=== PATIENT | female | born 1945 | race Caucasian/White ===

== ENCOUNTER 2018-01-23 02:24 | Emergency (ER) | payer OTHER, SELFPAY ==
[2018-01-23 02:38] VITALS: BP 131/92; PULSE 72; RESP 18; TEMP 36.7; O2SAT 98; BMI 33.8
--- NOTE | 2018-01-23 02:45 | DI.CT.S_ITS ---
PROCEDURE: CT HEAD/BRAIN WO CON INDICATIONS: 72 year-old female with right arm tingling and prior stroke. TECHNIQUE: Noncontrast 4.5 mm thick angled axial sections acquired from the foramen magnum to the vertex, with coronal and sagittal reformats. For radiation dose reduction, the following was used: automated exposure control, adjustment of mA and/or kV according to patient size. COMPARISON: [facility], CT, HEAD WITHOUT CONTRAST, 01/22/2015, 15:46. FINDINGS: Preliminary interpretation rendered by [employer]. Image quality: Excellent. CSF spaces: Basal cisterns are patent. No extra-axial fluid collections. The ventricles are symmetric in size and shape. Brain: No intracranial bleeds or masses. There are patchy subcortical white matter chronic small vessel ischemic changes. Nonacute left thalamic lacunar infarct is again noted. There is patchy intracranial internal carotid artery atherosclerosis. Skull and face: Calvarium and visualized facial bones appear intact, without suspicious lesions. Sinuses: Visualized sinuses and mastoids are clear. IMPRESSION: 1. No acute intracranial abnormalities. 2. Remote left thalamic lacunar infarct as before. 3. Patchy subcortical white matter chronic small vessel ischemic change. No significant discrepancy with preliminary [facility] report. Dictated by: Eduard Yo M.D. on 01/23/2018 at 7:49 Approved by: Eduard Yo M.D. on 01/23/2018 at 7:52
--- NOTE | 2018-01-23 02:48 | ED.NEUROSD ---
HPI - Neuro Symptoms/Deficit General Chief Complaint: Neuro Symptoms/Deficit Stated Complaint: Possible Stroke Time Seen by Provider: 01/23/18 02:44 Source: patient, RN notes reviewed and old records reviewed Mode of arrival: ambulatory Limitations: no limitations History of Present Illness HPI Narrative: Patient is a 72-year-old female presents with right arm tingling. It is difficult to get a proper history from her he says this started sometime today but it may have actually been on going for a number of years and progressively getting worse. She denies any weakness. She is concerned for a stroke. Records indicate that she has in the past had either a TIA or a CVA. She has no residual deficits. He states that number of years ago she has injured her right shoulder. She was feeling well earlier in the day. She has no chest pain no cough no shortness of breath no fever Onset (ago): unknown On Anticoagulants: No Related Data Previous Rx's Medication Instructions Recorded albuterol sulfate HFA 90 1 puff INHALATION QIDP PRN #1 ea 01/17/18 mcg/actuation aerosol inhaler atorvastatin 20 mg tablet 20 mg PO HS #90 tab 01/17/18 chlorthalidone 25 mg tablet 25 mg PO QDAY #90 tab 01/17/18 paroxetine 40 mg tablet 40 mg PO QAM #90 tab 01/17/18 Allergies Allergy/AdvReac Type Severity Reaction Status Date / Time erythromycin base Allergy Intermediate Nausea, Verified 01/17/18 10:03 [ERYTHROMYCIN BASE] felt worse after taking codeine [CODEINE] Allergy Mild Nausea Verified 01/17/18 10:03 Review of Systems Review of Systems All systems reviewed & are unremarkable except as noted in HPI and below Constitutional Denies chills, Denies fever(s), Denies frequent falls, Denies headache(s), Denies lethargy and Denies weakness ENT Ears, Nose, Mouth, and Throat: Denies headache(s) Cardiovascular Denies chest pain, Denies syncope, Denies irregular heart rhythm, Denies lightheadedness, Denies palpitations, Denies dyspnea, Denies dyspnea on exertion and Denies orthopnea Respiratory Denies cough, Denies dyspnea, Denies dyspnea on exertion and Denies wheezing Gastrointestinal Gastrointestinal: Denies abdominal pain, Denies change in bowel habits, Denies diarrhea, Denies nausea and Denies vomiting Genitourinary Denies hematuria, Denies flank pain, Denies urinary incontinence and Denies urinary urgency Musculoskeletal Denies abnormal gait and Reports tingling (Right arm) Integumentary/Breasts Denies pruritus, Denies erythema, Denies rash and Denies wounds Neurologic Reports as per HPI, Denies abnormal gait, Denies syncope, Denies frequent falls, Denies headache(s), Denies lack of coordination, Denies focal weakness, Reports radicular pain, Reports tingling (Right arm) and Denies weakness Endocrine Denies palpitations Allergic/Immunologic Denies wheezing [facility] Medical History Allergic rhinitis (Chronic Unknown) Anxiety (Chronic Unknown) COPD (chronic obstructive pulmonary disease) (Chronic Unknown) Depression (Chronic Unknown) GERD (gastroesophageal reflux disease) (Chronic Unknown) Hyperlipemia (Chronic Unknown) Migraines (Chronic Unknown) History of pericarditis (Resolved Unknown) Stroke (Resolved Unknown) Surgical History Status post cholecystectomy Family History Father Asthma Grandmother AA (aortic aneurysm) Mother Stroke Arthritis Sister Osteoporosis Social History Smoking Status: Current every day smoker Tobacco: How many years used: 40 quit status: has quit before alcohol intake: never Exam Initial Vital Signs Initial Vital Signs: Vital Signs Temperature 98.0 F 01/23/18 02:38 Pulse Rate 72 01/23/18 02:38 Respiratory Rate 18 01/23/18 02:38 Blood Pressure 131/92 H 01/23/18 02:38 Pulse Oximetry 98 01/23/18 02:38 Const General: cooperative and comfortable Nutritional Appearance: average body habitus Orientation: alert, awake and oriented x3 HENMT Head: normal to inspection and normocephalic Face and sinus: normal facial exam and face symmetric Eyes Pupils: PERRL EOM: EOM intact bilaterally Neck Neck: full ROM, no meningeal signs and No JVD Resp Effort & Inspection: normal respiratory effort and able to speak in complete sentences Auscultation: clear to auscultation bilaterally Cardio Rate: regular rate Rhythm: regular rhythm Heart Sounds: S1 normal, S2 normal and no murmurs Pulses: normal peripheral pulses GI Inspection: non-distended Palpation: soft, no hepatosplenomegaly, No guarding, No pulsatile mass and No tender Auscultation: normal bowel sounds Skin General: no rashes or lesions noted, No jaundice and No petechiae Neuro General: alert, awake, oriented x3 and normal light touch, pain and propioception Cranial Nerves: CN's II-XI intact bilaterally and facial strength normal Cognition: normal cognition Speech: speech normal Gait: normal gait Motor: muscle tone normal throughout and strength 5/5 throughout Sensory Exam: no sensory deficits noted Extrem General: normal to inspection and full ROM Right upper extremity: normal to inspection, full ROM and normal capillary refill Left upper extremity: normal to inspection Right lower extremity: normal to inspection Left lower extremity: normal to inspection Scores NIH Stroke Scale Level of Conciousness: Alert, keenly responsive Ask month/age: Answers both questions correctly. Open/close eyes, close hand: Performs both tasks correctly Best gaze horizontal: Normal Visual huerta: No visual loss Facial palsy: Normal symetrical movement Left arm drift: No drift for full 10 sec Right arm drift: No drift for full 10 sec Left leg drift: No drift for full 10 sec Right leg drift: No drift for full 10 sec Limb ataxia: Absent Sensory on face/arms/legs: Normal, no sensory loss Best language: No aphasia, normal Dysarthria: Normal Extinction or inattention: No abnormality Total NIH Stroke scale score: 0 Course Orders Ordered: ED Orders 01/23/18 02:45 CT head/brain wo con Stat EKG-12 Lead Stat 01/23/18 02:57 Complete Blood Count MAN DIFF Stat Comprehensive Metabolic Panel Stat Creatine Kinase Urgent Partial Thromboplastin Time Stat Prothrombin Time INR Stat Troponin I Stat Vital Signs - 8 hr 01/23/18 02:38 01/23/18 04:06 Temperature 98.0 F Pulse Rate 72 91 H Respiratory Rate 18 18 Blood Pressure 131/92 H 128/84 H Pulse Oximetry 98 94 MDM - Neuro Symptoms/Deficit Lab Data Result diagrams: 01/23/18 02:57 01/23/18 02:57 Lab Results 01/23/18 01/23/18 01/23/18 Range/Units 02:57 02:57 02:57 WBC 10.4 (4.5-11.0) X10^3/uL RBC 5.13 (4.0-5.2) X10^6/uL Hgb 15.1 (12.0-16.0) g/dL Hct 44.3 (36-46) % MCV 86.4 (80-100) fL MCH 29.6 (26-34) PG MCHC 34.2 (30-36) % RDW 15.9 H (11.6-14.8) % Plt Count 293 (150-400) X10^3/uL PT (10.1-12.7) SECONDS INR (0.9-1.3) APTT (26.4-36.2) SECONDS Sodium 142 (137-145) mmol/L Potassium 3.3 L (3.4-5.1) mmol/L Chloride 98 (98-107) mmol/L Carbon Dioxide 32 (22-32) mmol/L BUN 22 H (7-17) mg/dL Creatinine 0.80 (0.52-1.04) mg/dL Estimated GFR > 60.0 (>60) mL/min BUN/Creatinine Ratio 27.5 H (6-22) Glucose 103 (80-110) mg/dL Calcium 8.9 (8.4-10.2) mg/dL Total Bilirubin 0.3 (0.2-1.3) mg/dL AST 25 (14-36) IU/L ALT 28 (9-52) IU/L Alkaline Phosphatase 187 H (38-126) U/L Total Creatine Kinase 67 (30-135) U/L CK-MB (CK-2) Cancelled Troponin I < 0.012 (0.01-0.034) ng/mL Total Protein 8.0 (6.3-8.2) g/dL Albumin 4.3 (3.5-5.0) g/dL Globulin 3.7 (1.7-4.1) g/dL Albumin/Globulin Ratio 1.2 (1.0-2.8) 01/23/18 Range/Units 02:57 WBC (4.5-11.0) X10^3/uL RBC (4.0-5.2) X10^6/uL Hgb (12.0-16.0) g/dL Hct (36-46) % MCV (80-100) fL MCH (26-34) PG MCHC (30-36) % RDW (11.6-14.8) % Plt Count (150-400) X10^3/uL PT 11.8 (10.1-12.7) SECONDS INR 1.1 (0.9-1.3) APTT 33 (26.4-36.2) SECONDS Sodium (137-145) mmol/L Potassium (3.4-5.1) mmol/L Chloride (98-107) mmol/L Carbon Dioxide (22-32) mmol/L BUN (7-17) mg/dL Creatinine (0.52-1.04) mg/dL Estimated GFR (>60) mL/min BUN/Creatinine Ratio (6-22) Glucose (80-110) mg/dL Calcium (8.4-10.2) mg/dL Total Bilirubin (0.2-1.3) mg/dL AST (14-36) IU/L ALT (9-52) IU/L Alkaline Phosphatase (38-126) U/L Total Creatine Kinase (30-135) U/L CK-MB (CK-2) Troponin I (0.01-0.034) ng/mL Total Protein (6.3-8.2) g/dL Albumin (3.5-5.0) g/dL Globulin (1.7-4.1) g/dL Albumin/Globulin Ratio (1.0-2.8) Imaging Data CT scan - head: 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 These are similar to previous EKGs no acute changes. no ST changes MDM Narrative Medical decision making narrative: Patient has no focal deficits. Symptoms more consistent with neuropathy. Blood work CT and EKG are within normal limits. He appears nontoxic. Discussed further workup with primary care provider. I have educated her on stroke symptoms along with the person who lives with her, and what to do. Patient feels comfortable going home. Discharge Plan Departure Patient Disposition: Home, Self-Care Clinical Impression: Peripheral neuropathy Discharge Date/Time: 01/23/18 04:07 Interventions: ED Discharge Assessment Last Done: 01/23/18 04:06 Instructions: DI for Peripheral Neuropathy Activity Restrictions/Additional Instructions: *You have been diagnosed with peripheral neuropathy *What to do: No sign of acute stroke, may require further outpatient testing with your primary doctor *Continue to take medications as directed *Follow up with your primary care provider in 2-3 days *Return to ER if you should have weakness, facial droop, vision changes or any new, worsening or concerning symptoms Prescriptions: No Action albuterol sulfate [Ventolin HFA] 90 mcg/actuation HFA aerosol inhaler 1 puff INHALATION QIDP PRN (Reason: shortness of breath) Qty: 1 RF: 5 atorvastatin [Lipitor] 20 mg tablet 20 mg PO HS Qty: 90 RF: 1 chlorthalidone 25 mg tablet 25 mg PO QDAY Qty: 90 RF: 1 paroxetine HCl [Paxil] 40 mg tablet 40 mg PO QAM Qty: 90 RF: 1 Referrals: Tashia Carolina DO [Primary Care Provider] -
[2018-01-23 03:12] LABS: Alanine Aminotransferase 28 IU/L (9-52); Albumin 4.3 g/dL (3.5-5.0); Albumin Globulin Ratio 1.2 (1.0-2.8); Alkaline Phosphatase 187 U/L (38-126); Aspartate Aminotransferase 25 IU/L (14-36); BUN Creatinine Ratio 27.5 (6-22); Bilirubin Total 0.3 mg/dL (0.2-1.3); Blood Urea Nitrogen 22 mg/dL (7-17); Calcium 8.9 mg/dL (8.4-10.2); Carbon Dioxide 32 mmol/L (22-32); Chloride 98 mmol/L (98-107); Estimated Glomerular Filt Rate > 60.0 mL/min (>60); Globulin 3.7 g/dL (1.7-4.1); Glucose 103 mg/dL (80-110); HEMOLYSIS < 15 (0-50); Potassium 3.3 mmol/L (3.4-5.1); Sodium 142 mmol/L (137-145)
[2018-01-23 03:13] LABS: Hematocrit 44.3 % (36-46); Hemoglobin 15.1 g/dL (12.0-16.0); Mean Corpuscular HGB Conc 34.2 % (30-36); Mean Corpuscular Hemoglobin 29.6 PG (26-34); Mean Corpuscular Volume 86.4 fL (80-100); Platelet Count 293 X10^3/uL (150-400); Red Blood Cell Count 5.13 X10^6/uL (4.0-5.2); Red Cell Distribution Width 15.9 % (11.6-14.8); White Blood Cell Count 10.4 X10^3/uL (4.5-11.0)
[2018-01-23 03:24] LABS: INR 1.1 (0.9-1.3); Prothrombin Time 11.8 SECONDS (10.1-12.7)
[2018-01-23 03:26] LABS: Troponin I < 0.012 ng/mL (0.01-0.034)
[2018-01-23 03:27] LABS: PTT Partial Thromboplastin Tim 33 SECONDS (26.4-36.2)
[2018-01-23 03:35] LABS: Creatine Kinase 67 U/L (30-135)
[2018-01-23 04:06] VITALS: BP 128/84; PULSE 91; RESP 18; O2SAT 94
[2018-01-23 04:39] LABS: Neutrophils Absolute Manual 5200 /uL (3000-5900); Total Cells Counted 100
[2018-01-23 04:40] LABS: Anisocytosis 2+
== END 2018-01-23 04:07 | disposition home or self-care (01) ==
PROVIDERS: Emergency Provider Emergency Medicine; Family Provider Family Medicine; PCP Family Medicine
DX: G62.9 Polyneuropathy, unspecified (principal)
CPT/HCPCS: 36591; 70450; 80053; 82550; 82553; 84484; 85025; 85610; 85730; 93005; 99282; 99291

== ENCOUNTER → 2018-02-20 08:27 | Outpatient (CLI) | payer OTHER, SELFPAY ==
[2018-02-20 08:58] LABS: Influenza A and B by PCR Rapid Negative (Negative)
== END ==
PROVIDERS: Family Provider Family Medicine; PCP Family Medicine; Visit Provider Physician Assistant
DX: R05 Cough (principal)
CPT/HCPCS: 87400

== ENCOUNTER → 2018-02-20 10:02 | Outpatient (CLI) | payer OTHER, SELFPAY ==
[2018-02-20 10:49] LABS: Add Manual Diff / Slide Review NO; Basophils Percent Auto 0.8 % (0-2); Eosinophils Percent Auto 0.5 % (2-4); Hematocrit 44.3 % (36-46); Hemoglobin 14.8 g/dL (12.0-16.0); Lymphocytes Percent Auto 27.5 % (25-40); Mean Corpuscular HGB Conc 33.5 % (30-36); Mean Corpuscular Volume 86.7 fL (80-100); Monocytes Percent Auto 9.5 % (3-14); Neutrophils Absolute Auto 3700 /uL (3000-5900); Neutrophils Percent Auto 61.7 % (50-75); Platelet Count 221 X10^3/uL (150-400); Red Blood Cell Count 5.11 X10^6/uL (4.0-5.2); Red Cell Distribution Width 15.8 % (11.6-14.8)
[2018-02-20 11:12] LABS: Alanine Aminotransferase 40 IU/L (9-52); Albumin 4.1 g/dL (3.5-5.0); Albumin Globulin Ratio 1.3 (1.0-2.8); Alkaline Phosphatase 161 U/L (38-126); Aspartate Aminotransferase 36 IU/L (14-36); BUN Creatinine Ratio 28.9 (6-22); Bilirubin Total 0.2 mg/dL (0.2-1.3); Blood Urea Nitrogen 26 mg/dL (7-17); Calcium 9.1 mg/dL (8.4-10.2); Carbon Dioxide 34 mmol/L (22-32); Chloride 96 mmol/L (98-107); Cholesterol 107 mg/dL (140-199); Estimated Glomerular Filt Rate > 60.0 mL/min (>60); Globulin 3.1 g/dL (1.7-4.1); Glucose 111 mg/dL (80-110); HDL Cholesterol 40 mg/dL (40-60); HEMOLYSIS < 15 (0-50); LDL Cholesterol Calculated 41 mg/dL (<100); Potassium 3.6 mmol/L (3.4-5.1); Sodium 141 mmol/L (137-145); Total Protein 7.2 g/dL (6.3-8.2); Triglycerides 130 mg/dL (35-150)
[2018-02-20 11:28] LABS: Appearance Urine UA CLEAR; Bilirubin Urine UA NEGATIVE (NEGATIVE); Color Urine UA YELLOW; Glucose Urine UA NEGATIVE (Normal); Ketones Urine UA NEGATIVE (NEGATIVE); Leukocyte Esterase Urine UA NEGATIVE (NEGATIVE); Nitrite Urine UA Negative (Negative); Occult Blood Urine UA TRACE-LYSED (Negative); Protein Urine UA TRACE (Negative); Specific Gravity Urine UA >=1.030 (1.000-1.035); Urobilinogen Urine UA 0.2 E.U./dL (0.2)
[2018-02-20 11:40] LABS: Thyroid Stimulating Hormone 3.67 uIU/mL (0.47-4.68)
== END ==
PROVIDERS: PCP Family Medicine; Visit Provider Physician Assistant
DX: J18.9 Pneumonia, unspecified organism (principal); I10 Essential (primary) hypertension; Z51.81 Encounter for therapeutic drug level monitoring
CPT/HCPCS: 36415; 80053; 80061; 81003; 84443; 85025; 87400

== ENCOUNTER 2018-02-21 19:30 | Observation (INO) | payer OTHER, SELFPAY ==
[2018-02-21] VITALS (8 sets, daily range): BP systolic 101–143; BP diastolic 59–74; PULSE 76–92; RESP 16–24; TEMP 36.4; O2SAT 87–93
--- NOTE | 2018-02-21 20:08 | ED.SOB ---
HPI - SOB/Dyspnea General Chief Complaint: Shortness of Breath/Dyspnea Stated Complaint: SOB Time Seen by Provider: 02/21/18 20:06 Source: patient Mode of arrival: ambulatory Limitations: no limitations History of Present Illness 72-year-old female with a significant smoking history here for evaluation of shortness of breath and not feeling well. Patient states that she started to not feel well a couple days ago. She does have an albuterol inhaler at home which she was using which only minimally helped her symptoms. She did go to the walk-in clinic within the past 2 days and was given an albuterol neb there which she states helped her symptoms tremendously. She was sent home with a prescription for Levaquin. States she has taken this for 2 days And reports that after she took it earlier today she felt worse she states she was not sent home with any steroids. She states she has never been diagnosed with COPD. She does not use oxygen at home. Does not use a walker at home on a regular basis. Related Data Home Medications Medication Instructions Recorded Confirmed aspirin 325 mg tablet 325 mg PO DAILY 02/20/18 02/21/18 Previous Rx's Medication Instructions Recorded albuterol sulfate HFA 90 1 puff INHALATION QIDP PRN #1 ea 01/17/18 mcg/actuation aerosol inhaler atorvastatin 20 mg tablet 20 mg PO HS #90 tab 01/17/18 chlorthalidone 25 mg tablet 25 mg PO QDAY #90 tab 01/17/18 paroxetine 40 mg tablet 40 mg PO QAM #90 tab 01/17/18 levofloxacin 750 mg tablet 750 mg PO DAILY 7 Days #7 tab 02/20/18 Allergies Allergy/AdvReac Type Severity Reaction Status Date / Time erythromycin base Allergy Intermediate Nausea, Verified 01/17/18 10:03 [ERYTHROMYCIN BASE] felt worse after taking codeine [CODEINE] Allergy Mild Nausea Verified 01/17/18 10:03 Review of Systems Constitutional Reports fatigue, Denies fever(s), Denies headache(s), Reports lethargy and Reports malaise ENT Ears, Nose, Mouth, and Throat: Denies headache(s) Cardiovascular Denies chest pain, Denies palpitations and Reports dyspnea Respiratory Reports chest congestion, Reports cough and Reports dyspnea Gastrointestinal Gastrointestinal: Denies diarrhea, Denies nausea and Denies vomiting Genitourinary Denies dysuria Musculoskeletal Denies myalgias and Denies arthralgias Comments: Does describe generalized muscle weakness Integumentary/Breasts Denies lesions and Denies rash Neurologic Denies headache(s) Endocrine Reports fatigue and Denies palpitations Hematologic/Lymphatic Denies easy bleeding and Denies easy bruising Allergic/Immunologic Denies urticaria [facility] Medical History Allergic rhinitis (Chronic Unknown) Anxiety (Chronic Unknown) COPD (chronic obstructive pulmonary disease) (Chronic Unknown) Depression (Chronic Unknown) GERD (gastroesophageal reflux disease) (Chronic Unknown) Hyperlipemia (Chronic Unknown) Migraines (Chronic Unknown) History of pericarditis (Resolved Unknown) Stroke (Resolved Unknown) Surgical History Status post cholecystectomy Family History Father Asthma Grandmother AA (aortic aneurysm) Mother Stroke Arthritis Sister Osteoporosis Social History household members: spouse and family Smoking Status: Current every day smoker Tobacco: How many years used: 40 quit status: has quit before alcohol intake: never Exam Initial Vital Signs Initial Vital Signs: Vital Signs Temperature 97.5 F L 02/21/18 19:35 Pulse Rate 78 02/21/18 19:35 Respiratory Rate 20 02/21/18 19:35 Blood Pressure 119/72 02/21/18 19:35 Pulse Oximetry 92 02/21/18 19:35 Const General: cooperative, healthy appearing and comfortable Orientation: alert, awake and oriented x3 HENMT Head: normal to inspection, normocephalic and atraumatic Resp Effort & Inspection: cough, no nasal flaring, no respiratory distress, no retractions and tachypneic Auscultation: rhonchi and wheezes Cardio Rate: regular rate Rhythm: regular rhythm Pulses: radial pulses present Skin Lesions: no lesions Rashes: no rashes Neuro General: alert, awake and oriented x3 Speech: speech normal Motor: muscle tone normal throughout Sensory Exam: no sensory deficits noted Extrem General: normal to inspection, capillary refill normal and no pedal edema Psych Appearance: grossly normal and well kempt Course Orders Ordered: ED Orders 02/21/18 20:08 EKG-12 Lead Stat 02/21/18 20:10 Complete Blood Count AUTO DIFF Stat Comprehensive Metabolic Panel Stat 02/21/18 20:13 Consult to Respiratory Therapy Evaluate & Treat XR chest 2V Stat 02/21/18 20:15 Urine Microscopic Stat 02/21/18 21:20 Lactate (Lactic Acid) Stat 02/21/18 23:13 Consult to Physician Routine 02/22/18 01:30 Lactate 4HR (Lactic Acid Rflx) Stat Albuterol (Ventolin) 2.5 mg INH [id number] PRN PRN Reason: Shortness Of Breath Sodium Chloride (Normal Saline 0.9% Flush) 10 ml IV BID WAQAS Sodium Chloride (Normal Saline 0.9% Flush) 10 ml IV PRN PRN PRN Reason: Flush Discontinued Medications Albuterol (Ventolin) 2.5 mg INH NOW ONE Stop: 02/21/18 20:23 Last Admin: 02/21/18 20:34 Dose: 2.5 mg Albuterol (Ventolin) 2.5 mg INH NOW ONE Stop: 02/21/18 20:23 Last Admin: 02/21/18 20:35 Dose: 2.5 mg Albuterol (Ventolin) 2.5 mg INH NOW ONE Stop: 02/21/18 20:23 Last Admin: 02/21/18 20:35 Dose: 2.5 mg Methylprednisolone (Solu-Medrol 125 Mg Vial) 125 mg IV NOW ONE Stop: 02/21/18 20:24 Last Admin: 02/21/18 20:33 Dose: 125 mg Vital Signs - 8 hr 02/21/18 20:00 02/21/18 20:44 02/21/18 21:14 Temperature Pulse Rate 82 89 84 Respiratory Rate 19 18 16 Blood Pressure Blood Pressure [Right Arm] 143/71 H 133/74 H Pulse Oximetry 92 93 90 L 02/21/18 22:08 02/21/18 22:11 02/21/18 22:21 Temperature Pulse Rate 84 84 92 H Respiratory Rate 24 24 24 Blood Pressure Blood Pressure [Right Arm] 101/62 101/62 Pulse Oximetry 90 L 90 L 87 L 02/21/18 23:11 02/22/18 00:30 02/22/18 02:42 Temperature 98.7 F Pulse Rate 76 79 Respiratory Rate 20 20 Blood Pressure 139/74 H Blood Pressure [Right Arm] 142/59 H Pulse Oximetry 91 89 L 93 MDM - SOB/Dyspnea Medical Records Attestation: I reviewed the patient's medical records. Lab Data Attestation: I reviewed the patient's lab results. Result diagrams: 02/21/18 20:10 02/21/18 20:10 Lab Results 02/21/18 02/21/18 02/21/18 Range/Units 20:10 20:10 20:15 WBC 5.5 (4.5-11.0) X10^3/uL RBC 5.25 H (4.0-5.2) X10^6/uL Hgb 15.3 (12.0-16.0) g/dL Hct 45.3 (36-46) % MCV 86.3 (80-100) fL MCH 29.2 (26-34) PG MCHC 33.9 (30-36) % RDW 16.1 H (11.6-14.8) % Plt Count 192 (150-400) X10^3/uL Neut % (Auto) 63.9 (50-75) % Lymph % (Auto) 27.2 (25-40) % [place] % (Auto) 7.6 (3-14) % Eos % (Auto) 0.2 L (2-4) % Baso % (Auto) 1.1 (0-2) % Neut # (Auto) 3500 (7760-1984) /uL Sodium 140 (137-145) mmol/L Potassium 3.4 (3.4-5.1) mmol/L Chloride 96 L (98-107) mmol/L Carbon Dioxide 32 (22-32) mmol/L BUN 21 H (7-17) mg/dL Creatinine 0.90 (0.52-1.04) mg/dL Estimated GFR > 60.0 (>60) mL/min BUN/Creatinine Ratio 23.3 H (6-22) Glucose 108 (80-110) mg/dL Lactate (0.7-2.1) mmol/L Calcium 9.1 (8.4-10.2) mg/dL Total Bilirubin 0.3 (0.2-1.3) mg/dL AST 43 H (14-36) IU/L ALT 37 (9-52) IU/L Alkaline Phosphatase 162 H (38-126) U/L Total Protein 7.7 (6.3-8.2) g/dL Albumin 4.3 (3.5-5.0) g/dL Globulin 3.4 (1.7-4.1) g/dL Albumin/Globulin Ratio 1.3 (1.0-2.8) Urine RBC None seen (0-5/HPF) Urine WBC 1-5/hpf (0-5/HPF) Ur Squamous Epith Cells 1-5 /hpf Amorphous Sediment 1+ Urine Bacteria Occasional (0-1) (None) Urine Mucus 1+ H (Negative) Ur Culture Indicated? Cult not indicated Micro UA Comment Not Reportable 02/21/18 02/22/18 Range/Units 21:20 01:30 WBC (4.5-11.0) X10^3/uL RBC (4.0-5.2) X10^6/uL Hgb (12.0-16.0) g/dL Hct (36-46) % MCV (80-100) fL MCH (26-34) PG MCHC (30-36) % RDW (11.6-14.8) % Plt Count (150-400) X10^3/uL Neut % (Auto) (50-75) % Lymph % (Auto) (25-40) % [place] % (Auto) (3-14) % Eos % (Auto) (2-4) % Baso % (Auto) (0-2) % Neut # (Auto) (2584-1918) /uL Sodium (137-145) mmol/L Potassium (3.4-5.1) mmol/L Chloride (98-107) mmol/L Carbon Dioxide (22-32) mmol/L BUN (7-17) mg/dL Creatinine (0.52-1.04) mg/dL Estimated GFR (>60) mL/min BUN/Creatinine Ratio (6-22) Glucose (80-110) mg/dL Lactate 2.3 H 3.8 H (0.7-2.1) mmol/L Calcium (8.4-10.2) mg/dL Total Bilirubin (0.2-1.3) mg/dL AST (14-36) IU/L ALT (9-52) IU/L Alkaline Phosphatase (38-126) U/L Total Protein (6.3-8.2) g/dL Albumin (3.5-5.0) g/dL Globulin (1.7-4.1) g/dL Albumin/Globulin Ratio (1.0-2.8) Urine RBC (0-5/HPF) Urine WBC (0-5/HPF) Ur Squamous Epith Cells Amorphous Sediment Urine Bacteria (None) Urine Mucus (Negative) Ur Culture Indicated? Micro UA Comment MDM Narrative Medical decision making narrative: patient was afebrile here in the emergency department. Does not have an elevated white count. Does have a lactate of 2.3. Her wheezing improved manner sling after the 3 albuterol nebs here in the ER. She was also given steroids here. She did take a dose of Levaquin earlier today so no antibiotics were given here in the emergency department. After these interventions the patient states that she did feel much better but was not back to baseline she did ambulate here in the emergency department however did have to use a walker which she normally does not use. On room air patient's oxygen saturations were in the high 80s. On 2 L of nasal cannula they were in the mid 90s. On ambulation patient did drop to the 80s. I held on a chest x-ray secondary to the fact that the patient is currently on antibiotics that would treat any potential pneumonia and the fact that she did not have a fever did not have an elevated white blood cell count and that her lung sounds did improve after the albuterol nebulizers. Patient does not have a diagnosis of COPD however given her smoking history and her presentation today, she most likely carries this diagnosis. Patient clinically is not in heart failure. Has no lower extremity swelling. Her presentation is not consistent with this. She denies any chest pain. Discussed the case with Dr. Torres who asked that respiratory obtain peak expiratory flow. Patient was at 50% of her predicted peak expiratory flow at the time of admission. Will admit the patient for continued evaluation and treatment. Patient was nontoxic appearing. She did agree with the plan for admission to the hospital. The repeat lactate above was drawn after the patient was admitted to the hospital. Discharge Plan Departure Patient Disposition: Admitted as Observation Clinical Impression: COPD exacerbation, Hypoxia, Weakness Discharge Date/Time: 02/22/18 00:05 Interventions: ED Discharge Assessment Last Done: 02/21/18 23:58 Admit Date/Time: 02/21/18 23:18 Admit Provider: Jonathan Torres
--- NOTE | 2018-02-21 20:13 | DI.RAD.S_ITS ---
PROCEDURE: XR CHEST 2V INDICATIONS: shortness of breath TECHNIQUE: 2 views of the chest were acquired. COMPARISON: [facility], CHEST 2 VIEW, 05/03/2017, 23:30. [facility], CHEST 1 VIEW, 08/23/2016, 19:52. [facility], CHEST 1 VIEW, 08/11/2016, 14:28. [facility], CHEST 2 VIEW, 08/09/2016, 13:12. FINDINGS: Surgical changes and devices: None. Lungs and pleura: No pleural effusions or pneumothorax. No focal consolidations. Perihilar and interstitial linear opacities are unchanged from prior exam. Mediastinum: Mediastinal contours are normal. Heart size is normal. Bones and chest wall: No suspicious bony abnormalities. Soft tissues appear unremarkable. Mild multilevel degenerative changes of the thoracic spine. IMPRESSION: No focal consolidations concerning for pneumonia. Dictated by: Ilia Vazquez M.D. on 02/21/2018 at 20:56 Approved by: Ilia Vazquez M.D. on 02/21/2018 at 20:59
[2018-02-21 20:25] LABS: RBC Urine None Seen (0-5/HPF)
[2018-02-21 20:26] LABS: Add Manual Diff / Slide Review NO; Basophils Percent Auto 1.1 % (0-2); Eosinophils Percent Auto 0.2 % (2-4); Hematocrit 45.3 % (36-46); Hemoglobin 15.3 g/dL (12.0-16.0); Lymphocytes Percent Auto 27.2 % (25-40); Mean Corpuscular HGB Conc 33.9 % (30-36); Mean Corpuscular Hemoglobin 29.2 PG (26-34); Mean Corpuscular Volume 86.3 fL (80-100); Monocytes Percent Auto 7.6 % (3-14); Neutrophils Absolute Auto 3500 /uL (3000-5900); Neutrophils Percent Auto 63.9 % (50-75); Platelet Count 192 X10^3/uL (150-400); Red Blood Cell Count 5.25 X10^6/uL (4.0-5.2); Red Cell Distribution Width 16.1 % (11.6-14.8); White Blood Cell Count 5.5 X10^3/uL (4.5-11.0)
[2018-02-21] MEDS: methylPREDNISolone 125 MG/2 ML VIAL IV (20:33)
[2018-02-21] MEDS: ALBUTEROL 2.5 MG/3 ML NEB (ADULT) INH ×3 (20:34→20:35)
[2018-02-21 20:37] LABS: Alanine Aminotransferase 37 IU/L (9-52); Albumin 4.3 g/dL (3.5-5.0); Albumin Globulin Ratio 1.3 (1.0-2.8); Alkaline Phosphatase 162 U/L (38-126); Aspartate Aminotransferase 43 IU/L (14-36); BUN Creatinine Ratio 23.3 (6-22); Bilirubin Total 0.3 mg/dL (0.2-1.3); Blood Urea Nitrogen 21 mg/dL (7-17); Calcium 9.1 mg/dL (8.4-10.2); Carbon Dioxide 32 mmol/L (22-32); Chloride 96 mmol/L (98-107); Estimated Glomerular Filt Rate > 60.0 mL/min (>60); Globulin 3.4 g/dL (1.7-4.1); Glucose 108 mg/dL (80-110); HEMOLYSIS < 15 (0-50); Potassium 3.4 mmol/L (3.4-5.1); Sodium 140 mmol/L (137-145); Total Protein 7.7 g/dL (6.3-8.2)
[2018-02-21 20:43] LABS: Amorphous Sediment Urine 1+; Bacteria Urine Occasional (0-1); Squamous Epithelial Cell Urine 1-5 /HPF; WBC Urine 1-5/HPF (0-5/HPF)
[2018-02-21 20:44] LABS: Culture Indicated Urine Cult Not Indicated; Mucus Urine 1+ (Negative)
[2018-02-21 21:38] LABS: Lactate (Lactic Acid) 2.3 mmol/L (0.7-2.1)
--- NOTE | 2018-02-21 22:22 | PC.NURSE ---
patient tolerated ambulation with a walker and her o2 sats were mostly 87% but she did dip down to 85%. Dr. Nation aware.
--- NOTE | 2018-02-21 22:34 | PC.NURSE ---
patient given saltine crackers and harjeet crackers. Dr. Nation aware.
[2018-02-22 00:19] VITALS: BMI 32.8
[2018-02-22 00:30] VITALS: BP 139/74; PULSE 79; RESP 20; TEMP 37.1; O2SAT 89
[2018-02-22 01:24] LABS: Reflexed Lactate in 2 Hours Y
[2018-02-22 01:53] LABS: Lactate 2HR (Lactic Acid Rflx) 3.8 mmol/L (0.7-2.1)
--- NOTE | 2018-02-22 02:09 | PC.NURSE ---
Admitted to room 218, oriented to her room. Showed how to use her call lgiht, bed & TV controls. Denies any SOB & dyspnea with exertion. Did not C/O pain or discomfort, poor historian not able to recall sister's telephone number. Reported I'm just tired & I can't think right. I need to sleep & rest. Instructed to call for assistance if she needed to get up OOB to the BR. Will monitor.
[2018-02-22 02:42] VITALS: O2SAT 93
[2018-02-22 03:53] VITALS: BP 146/73; PULSE 65; RESP 20; TEMP 36.8; O2SAT 94
[2018-02-22 07:30] VITALS: BP 126/62; PULSE 66; RESP 18; TEMP 36.4; O2SAT 90
--- NOTE | 2018-02-22 09:23 | P.DS_ITS ---
History of Present Illness Date Patient Seen: 02/22/18 Time Patient Seen: 09:00 Chief complaint: SOB Narrative: 72-year-old female, under the primary care of Dr. Tashia Carolina, who was admitted from the [facility] emergency room last night for worsening of shortness of breath for 2 days. She has history of COPD. She has been having worsening of shock shortness of breath and cough in the past 2-3 days. She was given prescription of Levaquin 2 days prior to hospital admission. She felt her symptoms were worse after she took her Levaquin yesterday. She was found to have oxygen saturation in the 80s on room air. She did require nasal cannula oxygen at the ER. Her breathing did improve after 3 nebulizer treatments. She also received IV Solu-Medrol. She feels her breathing has much improved this morning. She still has mild tightness in the chest. She has not noticed any fevers or chills. She denies chest pain. Discharge Providers Date of admission: 02/21/18 23:18 Primary care physician: Tashia Carolina DO Consults: 02/21/18 20:13 Consult to Respiratory Therapy Evaluate & Treat Comment: Physician Instructions: Evaluate and treat 02/21/18 23:13 Consult to Physician Routine Comment: Consulting Provider: Jonathan Torres Reason for consultation: admission Has provider been notified: Yes Discharge provider: Joann Hutchins MD Discharge Date: 02/22/18 Summary Discharge Diagnosis: 1. Acute COPD exacerbation 2. Acute respiratory failure secondary to COPD exacerbation 3. Tobacco abuse 4. Hypertension 5. Hyperlipidemia 6. GERD Hospital Course: Patient has significant improvement of her respiration overnight after receiving nebulizer treatment and 1 dose of IV Solu-Medrol at the ER. Physical exam she had no wheezing and good air entry. She is going to be discharged on Advair Diskus, Spiriva, and albuterol inhalers. Follow up with primary care provider within 1 week. She was initially on nasal cannula oxygen. She is currently having normal saturation on room air. We have discussed the importance of smoking cessation. Nicotine patch prescription will be given at the time of discharge. Status at Discharge Cognitive/behavioral status at discharge: She was alert and oriented Functional status at discharge: independent ambulation Overall status at discharge: patient is progressing back to baseline Time Spent with Patient Greater than 30 minutes Exam Vital Signs (past 8 hours): - 02/22/18 02:42 02/22/18 03:53 02/22/18 07:30 Temperature 98.2 F 97.6 F Pulse Rate 65 66 Respiratory Rate 20 18 Blood Pressure 146/73 H 126/62 H Pulse Oximetry 93 94 90 L Oxygen Delivery Method Room Air Oxygen Flow Rate 0 Narrative Exam Narrative: GENERAL: Obese middle-aged woman in no acute distress. HEENT: Head normocephalic, atraumatic. Eyes pupils equal round NECK: Supple, no JVD, CHEST: Breath sounds equal bilaterally, no wheezes rales or rhonchi. CARDIAC: Regular rate and rhythm without murmurs, rubs or gallops. ABDOMEN: Soft, nontender. Normoactive bowel sounds all 4 quadrants. No guarding or rebound. EXTREMITIES: Normal range of motion, no clubbing or edema. NEUROLOGICAL: Alert and oriented; Normal muscle strength. SKIN: Warm, dry, no petechiae, no rashes or lesions. Objective Imaging Chest x-ray: Radiologist's impression: No pleural effusions or pneumothorax. No focal consolidations. Perihilar and interstitial linear opacities are unchanged from prior exam. Heart size was normal. Labs Result Diagrams: 02/21/18 20:10 02/21/18 20:10 Labs: Laboratory Results - last 24 hr 02/21/18 02/21/18 02/21/18 20:10 20:10 20:15 WBC 5.5 RBC 5.25 H Hgb 15.3 Hct 45.3 MCV 86.3 MCH 29.2 MCHC 33.9 RDW 16.1 H Plt Count 192 Neut % (Auto) 63.9 Lymph % (Auto) 27.2 [place] % (Auto) 7.6 Eos % (Auto) 0.2 L Baso % (Auto) 1.1 Neut # (Auto) 3500 Sodium 140 Potassium 3.4 Chloride 96 L Carbon Dioxide 32 BUN 21 H Creatinine 0.90 Estimated GFR > 60.0 BUN/Creatinine Ratio 23.3 H Glucose 108 Lactate Calcium 9.1 Total Bilirubin 0.3 AST 43 H ALT 37 Alkaline Phosphatase 162 H Total Protein 7.7 Albumin 4.3 Globulin 3.4 Albumin/Globulin Ratio 1.3 Urine RBC None seen Urine WBC 1-5/hpf Ur Squamous Epith Cells 1-5 /hpf Amorphous Sediment 1+ Urine Bacteria Occasional (0-1) Urine Mucus 1+ H Ur Culture Indicated? Cult not indicated Micro UA Comment Not Reportable 02/21/18 02/22/18 21:20 01:30 WBC RBC Hgb Hct MCV MCH MCHC RDW Plt Count Neut % (Auto) Lymph % (Auto) [place] % (Auto) Eos % (Auto) Baso % (Auto) Neut # (Auto) Sodium Potassium Chloride Carbon Dioxide BUN Creatinine Estimated GFR BUN/Creatinine Ratio Glucose Lactate 2.3 H 3.8 H Calcium Total Bilirubin AST ALT Alkaline Phosphatase Total Protein Albumin Globulin Albumin/Globulin Ratio Urine RBC Urine WBC Ur Squamous Epith Cells Amorphous Sediment Urine Bacteria Urine Mucus Ur Culture Indicated? Micro UA Comment Discharge Plan Discharge Plan Patient Disposition: Home, Self-Care Discharge comment: Follow-up with Dr. Carolina within 7 days Provider Discharge Instructions Diet: Low-sodium and Low-cholesterol Discharge Data Primary Care Provider: Tashia Carolina Attending Provider: Jonathan Torres Admit Date/Time: 02/21/18 23:18 Quality VTE Deep Vein Thrombosis/Pulmonary Embolism Present on Admission: No
--- NOTE | 2018-02-22 10:05 | CM.DANOTE ---
Addendum entered by Aurora Redman LPN 02/22/18 14:19: Met again with pt and her daughter, here to pick her up. Pt was moving about room independently and getting dressed. Daughter expressed overall concern re her parents but noted they have not wanted her intervention. Pt today does say she and her do need to make their home more age in place friendly. Pt's spouse is 80 and has chronic health problems. Confirmed that neither are homebound. Did give [employer] with pointed out [facility] Aging and Disability Resource contact number. POMatt discussed and pt considering giving this to her daughter. They will look at the brochure on same and follow up. Pt is encouraged to discuss her concerns re her chronic disease process with PCP and to ask if Pulmonary Rehab program might be helpful. Encouraged pt to allow her daughter to go with her to her PCP visit to act as advocate and because pt does admit to some forgetfulness. Original Note: Discharge Planning/Care Management DCP: assessment: case received, EMR reviewed, d/c summary noted. Met with pt. She is found sitting up in chair, on room air. Introduced self and role. Pt is a 72 year old female who admitted close to midnight 02/21 to care of hospitalist team. She says she does feel better but the steroids made me really shaky. I couldn't sleep all night. Says today she in having to void constantly and it smells bad. Says did not get a change to tell Dr. Hutchins this. Encouraged her to tell JAYESH Sim who will be working on the d/c later this morning. P: home today, clinic followup. Pt will call her family once she has a clearer idea from [place] as to when she will be ready to be released. CM Discharge Assessment Start: 02/22/18 10:03 Freq: Status: Active Protocol: Document 02/22/18 10:03 ITV (Rec: 02/22/18 10:05 ITV [id number]) Discharge Planning Assessment History Provided By Patient Medical Record Has Patient been admitted in last 30 No days? Is this patient on Medicare? No Prior Living Arrangements House Household Members spouse family Independent with ADL's Yes Is patient alert and oriented? Yes Referrals Initiated None needed Discharge Plan Home Transportation Arrangement family member will take her home Additional Comment pt confirms she will followup with her PCP as soon as possible Review Status In Process Next Review Type Discharge Review
== END 2018-02-22 11:21 | disposition home or self-care (01) ==
LOC: ED 23:13 → AC 23:19
PROVIDERS: Admitting Provider Internal Medicine; Emergency Provider Emergency Medicine; Family Provider Family Medicine; PCP Family Medicine; Visit Provider Internal Medicine
DX: J44.1 Chronic obstructive pulmonary disease with (acute) exacerbation (principal); R06.02 Shortness of breath; J96.00 Acute respiratory failure, unspecified whether with hypoxia or hypercapnia; I10 Essential (primary) hypertension; E78.5 Hyperlipidemia, unspecified; K21.9 Gastro-esophageal reflux disease without esophagitis; F17.210 Nicotine dependence, cigarettes, uncomplicated
CPT/HCPCS: 36415; 36591; 71046; 80053; 81003; 81015; 83605; 85025; 93005; 94640; 96374; 99283; 99285; G0378; J2930; J7613

== ENCOUNTER 2018-03-28 07:38 | Day surgery (SDC) | payer OTHER, SELFPAY ==
[2018-03-28] MEDS: PROPARACAINE 0.5% OPHTH SOL 2 DROPS EYE-OP (08:10)
[2018-03-28 08:14] VITALS: BMI 33.5
[2018-03-28] MEDS: CATARACT EYE COMPOUND (10 DROPS/SYRINGE) 3 DROPS EYE-OP (08:17)
[2018-03-28 08:32] VITALS: BP 130/77; PULSE 67; RESP 16; TEMP 36; O2SAT 67
--- NOTE | 2018-03-28 09:10 | P.OP.PRE_ITS ---
Pre-operative Note Interval Note Changes: No
--- NOTE | 2018-03-28 09:10 | PM.PREOP ---
Pre-operative Note Interval Note Changes: No
--- NOTE | 2018-03-28 09:11 | P.OP_ITS ---
Operative Date/Time/Diagnoses Pre-op diagnosis: Cataract Right eye Post-op diagnosis: same Procedure & Clinicians Procedure: Cataract Surgery Same procedure as scheduled: Yes Surgeon: Agustin Wilde Anesthesia Type: MAC +/- and Sedation Operative Notes Procedure in detail: Patient brought to the operating suite. Tetracaine drops placed in the right eye. Patient was prepped and draped in sterile manner. Wire lid speculum was placed in the eye. Betadine drops were placed on the eye. This was irrigated. Lidocaine jelly was placed on the eye. A paracentesis port was created with a side-port blade. 0.1 mL 1% preservative free lidocaine was injected into the anterior chamber. The anterior chamber was deepened with viscoelastic. 2.6 mm keratome was used to create a temporal clear corneal incision. Cystotome and Utrata forceps were used to create continuous tear capsulorrhexis. Balanced salt solution was used to hydro dissect the nucleus. The phacoemulsification handpiece was inserted and the nucleus was removed using the stop and chop technique. The irrigation aspiration handpiece was inserted and the remaining cortex was removed. Anterior chamber was deepened with viscoelastic. An Gary [id number] intraocular lens with a power of 25.0 was injected into the capsular bag. Irrigation aspiration handpiece was inserted and the remaining viscoelastic was removed. Incision was hydrated with balanced salt solution and found to be leak free with pressure with Weck- Maria Victoria sponges. 0.1 mL Vigamox injected anterior chamber. 0.3 mL Kenalog 10 mg was injected subconjunctivally. Lid speculum was removed. The patient left the operating room in excellent condition. Complications: none Condition: stable Disposition: same day surgery
--- NOTE | 2018-03-28 09:21 | SUR.OPER ---
Supine on eye stretcher, head on extension cradle secured with tape. Arms tucked at sides with blanket. Pillow under knees.
[2018-03-28] MEDS: LIDOCAINE 1% 10 ML INJ INJ (09:24)
[2018-03-28] MEDS: MOXIFLOXACIN OPHTH DROPS 3 ML BOTTLE 2 DROPS INJ (09:25)
[2018-03-28] MEDS: TRIAMCINOLONE 50 MG/5 ML VIAL INJ (09:25)
[2018-03-28] MEDS: TETRACAINE 0.5% OPHTH DROPS 15 ML 2 DROPS EYE-RIGHT (09:25)
[2018-03-28] MEDS: BALANCED SALT IRRIG SOLN NO.2 500 ML, EPINEPHrine 1 MG IRR (09:25)
[2018-03-28] MEDS: LIDOCAINE JELLY 2% 5 ML 1 APPLIC TOP (09:26)
[2018-03-28] MEDS: CHONDROIDTIN/SOD HYALURONATE 1.05 ML SYRINGE INTRAOCULA (09:26)
[2018-03-28 09:50] VITALS: BP 103/70; PULSE 67; RESP 12; TEMP 36.2; O2SAT 96
== END 2018-03-28 09:50 | disposition home or self-care (01) ==
PROVIDERS: Family Provider Family Medicine; PCP Family Medicine; Visit Provider Ophthalmology
DX: H25.11 Age-related nuclear cataract, right eye (principal); F41.9 Anxiety disorder, unspecified; Z86.73 Personal history of transient ischemic attack (TIA), and cerebral infarction without residual deficits; R25.1 Tremor, unspecified
CPT/HCPCS: J0171; J2250; J3010; J3301

== ENCOUNTER → 2018-05-04 09:45 | Outpatient (CLI) | payer OTHER, SELFPAY | PROVIDERS: Family Provider Family Medicine; PCP Family Medicine; Visit Provider Physician Assistant | DX: J02.9 Acute pharyngitis, unspecified (principal) | CPT/HCPCS: 87070 ==

== ENCOUNTER → 2018-08-30 07:54 | Outpatient (CLI) | payer OTHER, SELFPAY ==
[2018-08-30 08:50] LABS: Add Manual Diff / Slide Review NO; Basophils Absolute Auto 100 /uL (0-100); Basophils Percent Auto 0.7 % (0-2); Eosinophils Absolute Auto 300 /uL (0-450); Eosinophils Percent Auto 3.1 % (2-4); Hematocrit 43.7 % (36-46); Hemoglobin 14.6 g/dL (12.0-16.0); Lymphocytes Absolute Auto 3000 /uL (1100-4500); Lymphocytes Percent Auto 37.4 % (25-40); Mean Corpuscular HGB Conc 33.5 % (30-36); Mean Corpuscular Hemoglobin 29.4 PG (26-34); Mean Corpuscular Volume 87.7 fL (80-100); Monocytes Absolute Auto 500 /uL (0-900); Monocytes Percent Auto 5.9 % (3-14); Neutrophils Absolute Auto 4300 /uL (1500-7000); Neutrophils Percent Auto 52.9 % (50-75); Platelet Count 256 X10^3/uL (150-400); Red Blood Cell Count 4.98 X10^6/uL (4.0-5.2); Red Cell Distribution Width 14.5 % (11.6-14.8); White Blood Cell Count 8.2 X10^3/uL (4.5-11.0)
[2018-08-30 09:03] LABS: Alanine Aminotransferase 29 IU/L (9-52); Albumin 4.4 g/dL (3.5-5.0); Albumin Globulin Ratio 1.1 (1.0-2.8); Alkaline Phosphatase 190 U/L (38-126); Aspartate Aminotransferase 31 IU/L (14-36); BUN Creatinine Ratio 23.3 (6-22); Bilirubin Total 0.6 mg/dL (0.2-1.3); Blood Urea Nitrogen 21 mg/dL (7-17); Calcium 9.2 mg/dL (8.4-10.2); Carbon Dioxide 31 mmol/L (22-32); Chloride 97 mmol/L (98-107); Cholesterol 153 mg/dL (140-199); Estimated Glomerular Filt Rate > 60.0 mL/min (>60); Globulin 3.9 g/dL (1.7-4.1); Glucose 107 mg/dL (80-110); HDL Cholesterol 39 mg/dL (40-60); HEMOLYSIS < 15 (0-50); LDL Cholesterol Calculated 80 mg/dL (<100); Potassium 3.4 mmol/L (3.4-5.1); Sodium 139 mmol/L (137-145); Total Protein 8.3 g/dL (6.3-8.2); Triglycerides 171 mg/dL (35-150)
[2018-08-30 09:50] LABS: Thyroid Stimulating Hormone 3.88 uIU/mL (0.47-4.68)
== END ==
PROVIDERS: PCP Family Medicine; Visit Provider Family Medicine
DX: I10 Essential (primary) hypertension (principal); E78.5 Hyperlipidemia, unspecified; Z51.81 Encounter for therapeutic drug level monitoring
CPT/HCPCS: 36415; 80053; 80061; 84443; 85025

== ENCOUNTER → 2019-02-26 10:02 | Outpatient (CLI) | payer OTHER, SELFPAY ==
[2019-02-26 10:25] LABS: Add Manual Diff / Slide Review NO; Basophils Absolute Auto 100 /uL (0-100); Basophils Percent Auto 1.3 % (0-2); Eosinophils Absolute Auto 300 /uL (0-450); Eosinophils Percent Auto 3.2 % (2-4); Hematocrit 42.2 % (36-46); Hemoglobin 14.3 g/dL (12.0-16.0); Lymphocytes Absolute Auto 3600 /uL (1100-4500); Lymphocytes Percent Auto 36.8 % (25-40); Mean Corpuscular HGB Conc 33.8 % (30-36); Mean Corpuscular Hemoglobin 29.1 PG (26-34); Mean Corpuscular Volume 86.2 fL (80-100); Monocytes Absolute Auto 600 /uL (0-900); Neutrophils Absolute Auto 5100 /uL (1500-7000); Neutrophils Percent Auto 52.7 % (50-75); Platelet Count 244 X10^3/uL (150-400); Red Blood Cell Count 4.89 X10^6/uL (4.0-5.2); Red Cell Distribution Width 14.8 % (11.6-14.8); White Blood Cell Count 9.7 X10^3/uL (4.5-11.0)
[2019-02-26 10:52] LABS: Alanine Aminotransferase 14 IU/L (9-52); Albumin 4.3 g/dL (3.5-5.0); Albumin Globulin Ratio 1.2 (1.0-2.8); Alkaline Phosphatase 178 U/L (38-126); Aspartate Aminotransferase 24 IU/L (14-36); Bilirubin Total 0.6 mg/dL (0.2-1.3); Blood Urea Nitrogen 16 mg/dL (7-17); Calcium 9.2 mg/dL (8.4-10.2); Carbon Dioxide 33 mmol/L (22-32); Chloride 98 mmol/L (98-107); Cholesterol 148 mg/dL (140-199); Estimated Glomerular Filt Rate > 60.0 mL/min (>60); Globulin 3.7 g/dL (1.7-4.1); Glucose 102 mg/dL (80-110); HDL Cholesterol 42 mg/dL (40-60); HEMOLYSIS < 15 (0-50); LDL Cholesterol Calculated 66 mg/dL (<100); Potassium 3.5 mmol/L (3.4-5.1); Sodium 138 mmol/L (137-145); Triglycerides 198 mg/dL (35-150)
== END ==
PROVIDERS: Family Provider Family Medicine; PCP Family Medicine; Visit Provider Family Medicine
DX: E78.5 Hyperlipidemia, unspecified (principal); I10 Essential (primary) hypertension; Z51.81 Encounter for therapeutic drug level monitoring
CPT/HCPCS: 36415; 80053; 80061; 84443; 85025

== ENCOUNTER → 2020-08-25 10:15 | Outpatient (CLI) | payer OTHER, SELFPAY ==
[2020-08-20 15:40] VITALS: BMI 32.8
[2020-08-25 11:21] LABS: Alanine Aminotransferase 25 IU/L (<35); Albumin 4.3 g/dL (3.5-5.0); Albumin Globulin Ratio 1.2 (1.0-2.8); Alkaline Phosphatase 187 U/L (38-126); Aspartate Aminotransferase 31 IU/L (14-36); Bilirubin Total 0.5 mg/dL (0.2-1.3); Blood Urea Nitrogen 15 mg/dL (7-17); Calcium 9.1 mg/dL (8.4-10.2); Carbon Dioxide 32 mmol/L (22-32); Chloride 98 mmol/L (98-107); Cholesterol 174 mg/dL (140-199); Estimated Glomerular Filt Rate > 60.0 mL/min (>60); Globulin 3.5 g/dL (1.7-4.1); Glucose 107 mg/dL (80-110); HDL Cholesterol 59 mg/dL (40-60); HEMOLYSIS < 15 (0-50); LDL Cholesterol Calculated 86 mg/dL (<100); Potassium 3.4 mmol/L (3.4-5.1); Sodium 137 mmol/L (137-145); Total Protein 7.8 g/dL (6.3-8.2); Triglycerides 147 mg/dL (35-150)
[2020-08-25 12:01] LABS: Free T3, Triiodothyronine Free 3.37 pg/mL (2.77-5.27); Free T4, Direct Thyroxine 1.25 ng/dL (0.78-2.19)
[2020-08-25 12:15] LABS: Thyroid Stimulating Hormone 3.01 uIU/mL (0.47-4.68)
== END ==
PROVIDERS: Family Provider Family Medicine; PCP Nurse Practitioner; Referring Provider Nurse Practitioner; Visit Provider Nurse Practitioner
DX: E78.5 Hyperlipidemia, unspecified (principal); I10 Essential (primary) hypertension; Z79.899 Other long term (current) drug therapy
CPT/HCPCS: 36415; 80053; 80061; 84439; 84443; 84481

== ENCOUNTER → 2020-09-01 12:01 | Outpatient (CLI) | payer OTHER, SELFPAY ==
[2020-08-20 15:40] VITALS: BMI 32.8
[2020-09-02 03:10] LABS: HBsAg Screen Negative (Negative); Hepatitis A Antibody IgM Negative (Negative); Hepatitis B Core Antibody IgM Negative (Negative); Hepatitis C Antibody 0.2 s/co ratio (0.0-0.9)
== END ==
PROVIDERS: Family Provider Family Medicine; PCP Nurse Practitioner; Referring Provider Nurse Practitioner; Visit Provider Nurse Practitioner
DX: I10 Essential (primary) hypertension (principal); R74.8 Abnormal levels of other serum enzymes
CPT/HCPCS: 36415; 80074

== ENCOUNTER → 2021-10-28 11:00 | Outpatient (CLI) | payer OTHER, SELFPAY ==
[2020-08-20 15:40] VITALS: BMI 32.8
[2021-10-28 12:27] LABS: Alanine Aminotransferase 26 IU/L (<35); Albumin 4.1 g/dL (3.5-5.0); Albumin Globulin Ratio 1.4 (1.0-2.8); Alkaline Phosphatase 175 U/L (38-126); Aspartate Aminotransferase 32 IU/L (14-36); BUN Creatinine Ratio 22.2 (6-22); Bilirubin Total 0.6 mg/dL (0.2-1.3); Blood Urea Nitrogen 18 mg/dL (7-17); Calcium 8.9 mg/dL (8.4-10.2); Carbon Dioxide 29 mmol/L (22-32); Chloride 101 mmol/L (98-107); Cholesterol 139 mg/dL (140-199); Estimated Glomerular Filt Rate > 60.0 mL/min (>60); Globulin 2.9 g/dL (1.7-4.1); Glucose 95 mg/dL (80-110); HDL Cholesterol 61 mg/dL (40-60); HEMOLYSIS < 15 (0-50); LDL Cholesterol Calculated 51 mg/dL (<100); Potassium 3.5 mmol/L (3.4-5.1); Sodium 139 mmol/L (137-145); Triglycerides 137 mg/dL (35-150)
[2021-10-28 12:36] LABS: Free T3, Triiodothyronine Free 2.68 pg/mL (2.77-5.27); Free T4, Direct Thyroxine 1.35 ng/dL (0.78-2.19)
[2021-10-30 11:25] LABS: Creatinine Urine Random 35.5 mg/dL
[2021-10-30 11:30] LABS: Microalbumin Urine Random < 0.6 mg/dL (0-1.6)
== END ==
PROVIDERS: Family Provider Family Medicine; PCP Nurse Practitioner; Referring Provider Nurse Practitioner; Visit Provider Nurse Practitioner
DX: E78.2 Mixed hyperlipidemia (principal); F33.41 Major depressive disorder, recurrent, in partial remission; I10 Essential (primary) hypertension; Z79.899 Other long term (current) drug therapy
CPT/HCPCS: 36415; 80053; 80061; 82043; 82570; 84439; 84443; 84481

== ENCOUNTER → 2021-12-23 09:36 | Outpatient (CLI) | payer OTHER, SELFPAY ==
[2020-08-20 15:40] VITALS: BMI 32.8
--- NOTE | 2021-12-23 09:37 | DI.US.S_ITS ---
PROCEDURE: US ABDOMEN LIMITED INDICATIONS: HEP C SCREENING TECHNIQUE: Real-time scanning was performed of the abdominal and retroperitoneal organs, with image documentation. COMPARISON: None. FINDINGS: Liver: Liver is normal in size and homogeneous in echotexture. Gallbladder: The gallbladder is surgically absent Biliary ducts: Intrahepatic bile ducts are non-dilated. Extrahepatic bile duct caliber measures 8.6 mm. Normal is 6-7 mm or less in diameter, or 10 mm or less post-cholecystectomy. Pancreas: The pancreas is hyperechoic where visualized. IMPRESSION: 1. Normal sonographic appearance of the liver. Dictated by: Ashleigh Balderrama M.D. on 12/23/2021 at 10:08 Approved by: Ashleigh Balderrama M.D. on 12/23/2021 at 10:09
== END ==
PROVIDERS: Family Provider Family Medicine; PCP Nurse Practitioner; Referring Provider Nurse Practitioner; Visit Provider Nurse Practitioner
DX: R74.8 Abnormal levels of other serum enzymes (principal); Z90.49 Acquired absence of other specified parts of digestive tract
CPT/HCPCS: 76705

== ENCOUNTER 2022-06-21 07:44 | Emergency (ER) | payer OTHER, SELFPAY ==
[2020-08-20 15:40] VITALS: BMI 32.8
[2022-06-21] VITALS (13 sets, daily range): BP systolic 129–152; BP diastolic 58–68; PULSE 57–65; RESP 16; TEMP 36.6; O2SAT 95–99; BMI 28.3
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
--- NOTE | 2022-06-21 09:06 | DI.RAD.S_ITS ---
PROCEDURE: XR CHEST 1V INDICATIONS: leg swelling, sob TECHNIQUE: One view of the chest was acquired. COMPARISON: [facility], CR, XR CHEST 2V, 02/21/2018, 20:01. FINDINGS: Surgical changes and devices: None. Lungs and pleura: Lungs are clear. No pleural effusions or pneumothorax. Mediastinum: Mediastinal contours appear normal. Heart size is normal. Bones and chest wall: No suspicious bony lesions. Overlying soft tissues appear unremarkable. IMPRESSION: No evidence acute pulmonary process. Dictated by: Joel Marrero M.D. on 06/21/2022 at 9:27 Approved by: Joel Marrero M.D. on 06/21/2022 at 9:29
[2022-06-21 09:14] LABS: Add Manual Diff / Slide Review NO; Basophils Absolute Auto 0 /uL (0-100); Basophils Percent Auto 0.4 % (0-2); Eosinophils Absolute Auto 100 /uL (0-450); Eosinophils Percent Auto 1.6 % (2-4); Hematocrit 40.2 % (36-46); Hemoglobin 13.6 g/dL (12.0-16.0); Lymphocytes Absolute Auto 2700 /uL (1100-4500); Lymphocytes Percent Auto 32.5 % (25-40); Mean Corpuscular HGB Conc 33.9 % (30-36); Mean Corpuscular Hemoglobin 29.8 PG (26-34); Mean Corpuscular Volume 87.9 fL (80-100); Monocytes Absolute Auto 500 /uL (0-900); Monocytes Percent Auto 6.3 % (3-14); Neutrophils Absolute Auto 5000 /uL (1500-7000); Neutrophils Percent Auto 59.2 % (50-75); Platelet Count 208 X10^3/uL (150-400); Red Blood Cell Count 4.57 X10^6/uL (4.0-5.2); Red Cell Distribution Width 14.5 % (11.6-14.8); White Blood Cell Count 8.4 X10^3/uL (4.5-11.0)
[2022-06-21 09:16] LABS: PTT Partial Thromboplastin Tim 32 SECONDS (26-36)
[2022-06-21] MEDS: KETOROLAC 30 MG/ML VIAL 15 MG IV (09:20)
[2022-06-21] MEDS: ONDANSETRON 4 MG/2 ML INJ IV (09:20)
[2022-06-21 09:21] LABS: Alanine Aminotransferase 33 IU/L (<35); Albumin 4.3 g/dL (3.5-5.0); Albumin Globulin Ratio 1.3 (1.0-2.8); Alkaline Phosphatase 157 U/L (38-126); Aspartate Aminotransferase 38 IU/L (14-36); BUN Creatinine Ratio 23.6 (6-22); Bilirubin Total 0.4 mg/dL (0.2-1.3); Blood Urea Nitrogen 17 mg/dL (7-17); Carbon Dioxide 34 mmol/L (22-32); Chloride 95 mmol/L (98-107); Creatine Kinase 84 U/L (30-135); Estimated Glomerular Filt Rate > 60 mL/min (>60); Globulin 3.4 g/dL (1.7-4.1); Glucose 123 mg/dL (80-110); HEMOLYSIS < 15 (0-50); Lipase 29 U/L (23-300); Sodium 137 mmol/L (137-145); Total Protein 7.7 g/dL (6.3-8.2)
[2022-06-21] MEDS: SODIUM CHLORIDE 0.9% 1,000 ML 150 ML IV (09:21)
[2022-06-21] MEDS: PANTOPRAZOLE 40 MG VIAL IV (09:21)
[2022-06-21 09:34] LABS: NT-proBNP (BNP-Adult 18+) 45 pg/mL (<125); Troponin I < 0.012 ng/mL (0.01-0.034)
[2022-06-21] MEDS: POTASSIUM CHLORIDE 20 MEQ/15 ML UDC 40 MEQ PO (10:11)
--- NOTE | 2022-06-21 10:54 | PC.NURSE ---
assessment done by provider. pt states she fell asleep in her chair last night and woke up with legs swollen this morning. hx of recent tumor removal on forehead.
== END 2022-06-21 11:30 | disposition home or self-care (01) ==
PROVIDERS: Emergency Provider Emergency Medicine; Family Provider Family Medicine; PCP Nurse Practitioner
DX: R60.0 Localized edema (principal); R06.02 Shortness of breath
CPT/HCPCS: 71045; 80053; 82550; 83690; 83880; 84484; 85025; 85610; 85730; 93005; 96374; 96375; 99284; C9113; J1885; J2405

== ENCOUNTER → 2023-01-31 08:12 | Outpatient (CLI) | payer OTHER, SELFPAY ==
[2020-08-20 15:40] VITALS: BMI 32.8
[2023-01-31 09:23] LABS: Alanine Aminotransferase 21 IU/L (<35); Albumin 4.3 g/dL (3.5-5.0); Albumin Globulin Ratio 1.3 (1.0-2.8); Alkaline Phosphatase 157 U/L (38-126); Aspartate Aminotransferase 26 IU/L (14-36); BUN Creatinine Ratio 23.4 (6-22); Bilirubin Total 0.7 mg/dL (0.2-1.3); Blood Urea Nitrogen 22 mg/dL (7-17); Calcium 8.9 mg/dL (8.4-10.2); Carbon Dioxide 35 mmol/L (22-32); Chloride 96 mmol/L (98-107); Cholesterol 147 mg/dL (140-199); Estimated Glomerular Filt Rate > 60 mL/min (>60); Globulin 3.3 g/dL (1.7-4.1); Glucose 102 mg/dL (80-110); HDL Cholesterol 47 mg/dL (40-60); HEMOLYSIS < 15 (0-50); LDL Cholesterol Calculated 63 mg/dL (<100); Potassium 3.3 mmol/L (3.4-5.1); Sodium 137 mmol/L (137-145); Total Protein 7.6 g/dL (6.3-8.2); Triglycerides 183 mg/dL (35-150)
[2023-01-31 09:36] LABS: Free T3, Triiodothyronine Free 3.79 pg/mL (2.77-5.27); Free T4, Direct Thyroxine 1.27 ng/dL (0.78-2.19)
[2023-01-31 09:40] LABS: Creatinine Urine Random 105.3 mg/dL
[2023-01-31 09:46] LABS: Microalbumi Creatinin Ratio Ur 7.5 ug/mg CR (<30); Microalbumin Urine Random 0.8 mg/dL (0-1.6)
[2023-01-31 09:50] LABS: Thyroid Stimulating Hormone 2.96 uIU/mL (0.47-4.68)
== END ==
PROVIDERS: Family Provider Family Medicine; PCP Nurse Practitioner; Referring Provider Nurse Practitioner; Visit Provider Nurse Practitioner
DX: E78.2 Mixed hyperlipidemia (principal); I10 Essential (primary) hypertension; R74.8 Abnormal levels of other serum enzymes; F33.41 Major depressive disorder, recurrent, in partial remission; Z79.899 Other long term (current) drug therapy; Z12.11 Encounter for screening for malignant neoplasm of colon
CPT/HCPCS: 36415; 80053; 80061; 82043; 82570; 84439; 84443; 84481

== ENCOUNTER 2024-04-02 17:50 | Emergency (ER) | payer OTHER, SELFPAY ==
[2020-08-20 15:40] VITALS: BMI 32.8
[2024-04-02] VITALS (10 sets, daily range): BP systolic 132–149; BP diastolic 61–114; PULSE 64–76; RESP 14–18; TEMP 36.8; O2SAT 96–99; BMI 27.3
[2024-04-02 18:24] LABS: Add Manual Diff / Slide Review NO; Basophils Absolute Auto 100 /uL (0-100); Basophils Percent Auto 0.4 % (0-2); Eosinophils Absolute Auto 0 /uL (0-450); Eosinophils Percent Auto 0.2 % (2-4); Hematocrit 40.6 % (36-46); Hemoglobin 13.8 g/dL (12.0-16.0); Lymphocytes Absolute Auto 1100 /uL (1100-4500); Lymphocytes Percent Auto 6.2 % (25-40); Mean Corpuscular HGB Conc 33.9 % (30-36); Mean Corpuscular Hemoglobin 29.7 PG (26-34); Mean Corpuscular Volume 87.6 fL (80-100); Monocytes Absolute Auto 900 /uL (0-900); Neutrophils Absolute Auto 16100 /uL (1500-7000); Neutrophils Percent Auto 88.2 % (50-75); Platelet Count 206 X10^3/uL (150-400); Red Blood Cell Count 4.64 X10^6/uL (4.0-5.2); Red Cell Distribution Width 14.9 % (11.6-14.8); White Blood Cell Count 18.3 X10^3/uL (4.5-11.0)
[2024-04-02 18:30] LABS: Alanine Aminotransferase 21 IU/L (<35); Albumin 4.3 g/dL (3.5-5.0); Albumin Globulin Ratio 1.2 (1.0-2.8); Alkaline Phosphatase 167 U/L (38-126); Aspartate Aminotransferase 33 IU/L (14-36); BUN Creatinine Ratio 25.6 (6-22); Bilirubin Total 0.9 mg/dL (0.2-1.3); Blood Urea Nitrogen 23 mg/dL (7-17); Carbon Dioxide 29 mmol/L (22-32); Chloride 96 mmol/L (98-107); Estimated Glomerular Filt Rate > 60 mL/min (>60); Globulin 3.5 g/dL (1.7-4.1); Glucose 128 mg/dL (80-110); HEMOLYSIS 38 (0-50); Lipase 34 U/L (23-300); Potassium 3.4 mmol/L (3.4-5.1); Sodium 135 mmol/L (137-145); Total Protein 7.8 g/dL (6.3-8.2)
--- NOTE | 2024-04-02 18:30 | DI.CT.S_ITS ---
PROCEDURE: CT ABDOMEN PELVIS W CON INDICATIONS: N/V/D/LEFT FLANK PAIN TECHNIQUE: After the administration of intravenous contrast, axial sections acquired from the lung bases to the pubic symphysis. Coronal and sagittal reformats were performed. For radiation dose reduction, the following was used: automated exposure control, adjustment of mA and/or kV according to patient size. COMPARISON: None. FINDINGS: Image quality: Diagnostic. Lower Chest: No basilar consolidation or effusion. Heart base is unremarkable. No hiatal hernia. ABDOMEN: Liver: No solid mass. Gallbladder: Cholecystectomy. Biliary ducts: No biliary dilation. Pancreas: No ductal dilation. Spleen: Size is within normal limits. Splenule a Adrenal Glands: No adrenal nodules. Kidneys and Ureters: Mild bilateral hydroureteronephrosis with no obstructive nephrolithiasis.. No solid mass. No complex renal cystic lesion which requires follow up. Stomach and Bowel: Stomach is decompressed, limiting evaluation, but appears grossly normal. Small and large bowel is normal in caliber, without obstruction. Diffuse colonic mucosal hyperenhancement and mild wall thickening. Focal area of symmetric protrusion in the distal transverse colon (3/18). A few scattered colonic diverticuli, without diverticulitis. The Peritoneum: No abnormal intraperitoneal fluid. No free air. Ventral Wall: Tiny fat containing umbilical hernia. Abdominal Nodes: No retroperitoneal or mesenteric adenopathy by size criteria. Vessels: Aorta and inferior vena cava are normal in size. Moderate to marked calcification of the abdominal aorta and iliac vessels. Proximal mesenteric vessels are patent. Patent hepatic, portal, splenic and bilateral renal veins. PELVIS: Pelvic Organs: Unremarkable. Bladder: No bladder wall thickening, accounting for underdistention. Pelvic Nodes: No enlarged lymph nodes. Miscellaneous: No inguinal hernias are seen. Bones: No aggressive osseous abnormality. No acute fracture. No aggressive appearing lytic or blastic osseous lesion. Mild multilevel degenerative changes of the spine. The IMPRESSION: 1. Diffuse mucosal hyperenhancement and mild wall thickening of the colon suggestive of colitis of infectious or inflammatory etiology. Focal area of symmetric protrusion in the distal transverse colon is favored to reflect focal peristalsis. Correlate with colonoscopy history. 2. Mild bilateral hydroureteronephrosis with no obstructive nephrolithiasis. Findings may be secondary to urinary retention. Consider correlation with urine analysis and culture. Dictated by: Eva Leigh M.D. on 04/02/2024 at 18:48 Approved by: Eva Leigh M.D. on 04/02/2024 at 18:57
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
[2024-04-02] MEDS: ONDANSETRON 4 MG/2 ML INJ IV (18:36)
[2024-04-02] MEDS: SODIUM CHLORIDE 0.9% 1,000 ML 1000 ML IV (18:36)
--- NOTE | 2024-04-02 19:51 | PC.NURSE ---
Updated patient's sister whom she lives with about patient's status, OK per patient.
--- NOTE | 2024-04-02 20:30 | PC.NURSE ---
Patient attempted to urinate and not able to. Still complaining of left flank pain. Dr. Gama sam.
--- NOTE | 2024-04-02 20:54 | PC.NURSE ---
Straight cath done. 500ml urine out, sent to lab. Urine clear and tea colored.
[2024-04-02 21:00] LABS: Appearance Urine UA CLEAR; Glucose Urine UA NEGATIVE (Negative); Ketones Urine UA NEGATIVE (NEGATIVE); Leukocyte Esterase Urine UA NEGATIVE (NEGATIVE); Occult Blood Urine UA NEGATIVE (Negative); Protein Urine UA NEGATIVE (Negative)
[2024-04-02 21:18] LABS: Color Urine UA Dark Yellow
[2024-04-02 21:21] LABS: Bilirubin Urine UA Negative (NEGATIVE)
[2024-04-02 21:22] LABS: Bacteria Urine None Seen; RBC Urine 1-5/HPF (0-5/HPF); Squamous Epithelial Cell Urine 0-1 /HPF (0-5/HPF); Urine Volume 10mL (spun); WBC Urine None Seen (0-5/HPF)
[2024-04-02 21:23] LABS: Culture Indicated Urine Cult Not Indicated
== END 2024-04-02 21:57 | disposition home or self-care (01) ==
PROVIDERS: Emergency Provider Emergency Medicine; Family Provider Family Medicine; PCP Nurse Practitioner
DX: K52.9 Noninfective gastroenteritis and colitis, unspecified (principal); R10.9 Unspecified abdominal pain; R11.2 Nausea with vomiting, unspecified
CPT/HCPCS: 36415; 51701; 51798; 74177; 80053; 81001; 83605; 83690; 85025; 96361; 96374; 99284; J2405; Q9967

== ENCOUNTER → 2024-12-06 10:58 | Outpatient (CLI) | payer OTHER, SELFPAY ==
[2020-08-20 15:40] VITALS: BMI 32.8
[2024-12-06 12:09] LABS: Appearance Urine UA CLEAR; Bilirubin Urine UA NEGATIVE (NEGATIVE); Color Urine UA YELLOW; Glucose Urine UA NEGATIVE (Negative); Ketones Urine UA NEGATIVE (NEGATIVE); Leukocyte Esterase Urine UA 1+ (NEGATIVE); Nitrite Urine UA NEGATIVE (Negative); Occult Blood Urine UA TRACE-INTACT (Negative); Protein Urine UA NEGATIVE (Negative); Urobilinogen Urine UA 0.2 E.U./dL (0.2)
[2024-12-06 12:14] LABS: Amorphous Sediment Urine 1+; Bacteria Urine Moderate (10-30); Culture Indicated Urine Specimen Cultured; RBC Urine None Seen (0-5/HPF); Squamous Epithelial Cell Urine 0-1 /HPF (0-5/HPF); Urine Volume Low Vol <10mL unspun; WBC Urine 0-1/HPF (0-5/HPF)
[2024-12-06 12:14] LABS: Add Manual Diff / Slide Review NO; Basophils Absolute Auto 0 /uL (0-100); Basophils Percent Auto 0.5 % (0-2); Eosinophils Absolute Auto 200 /uL (0-450); Eosinophils Percent Auto 2.4 % (2-4); Hematocrit 38.3 % (36-46); Hemoglobin 12.9 g/dL (12.0-16.0); Lymphocytes Absolute Auto 2200 /uL (1100-4500); Lymphocytes Percent Auto 32.2 % (25-40); Mean Corpuscular HGB Conc 33.7 % (30-36); Mean Corpuscular Hemoglobin 28.7 PG (26-34); Mean Corpuscular Volume 85.2 fL (80-100); Monocytes Absolute Auto 400 /uL (0-900); Monocytes Percent Auto 6.1 % (3-14); Neutrophils Absolute Auto 4000 /uL (1500-7000); Neutrophils Percent Auto 58.8 % (50-75); Platelet Count 245 X10^3/uL (150-400); Red Blood Cell Count 4.49 X10^6/uL (4.0-5.2); Red Cell Distribution Width 14.7 % (11.6-14.8); White Blood Cell Count 6.9 X10^3/uL (4.5-11.0)
[2024-12-06 12:42] LABS: Alanine Aminotransferase 21 IU/L (<35); Albumin 4.2 g/dL (3.5-5.0); Albumin Globulin Ratio 1.2 (1.0-2.8); Alkaline Phosphatase 195 U/L (38-126); Aspartate Aminotransferase 31 IU/L (14-36); BUN Creatinine Ratio 24.1 (6-22); Bilirubin Total 0.6 mg/dL (0.2-1.3); Blood Urea Nitrogen 20 mg/dL (7-17); Calcium 8.8 mg/dL (8.4-10.2); Carbon Dioxide 31 mmol/L (22-32); Chloride 98 mmol/L (98-107); Estimated Glomerular Filt Rate > 60 mL/min (>60); Globulin 3.5 g/dL (1.7-4.1); Glucose 99 mg/dL (70-99); HEMOLYSIS < 15 (0-50); Potassium 3.2 mmol/L (3.4-5.1); Sodium 138 mmol/L (137-145); Total Protein 7.7 g/dL (6.3-8.2)
== END ==
PROVIDERS: PCP Family Medicine; Referring Provider Family Medicine; Visit Provider Family Medicine
DX: R30.0 Dysuria (principal); N81.4 Uterovaginal prolapse, unspecified
CPT/HCPCS: 36415; 80053; 81001; 85025; 87086

== ENCOUNTER → 2024-12-26 08:25 | Outpatient (CLI) | payer OTHER, SELFPAY ==
[2020-08-20 15:40] VITALS: BMI 32.8
--- NOTE | 2024-12-26 08:26 | DI.US.S_ITS ---
PROCEDURE: US RENAL COMPLETE INDICATIONS: POSSIBLE HYDRONEPHROSIS TECHNIQUE: Real-time scanning was performed of the kidneys and bladder, with image documentation. COMPARISON: [facility], CT, CT ABDOMEN PELVIS W CON, 04/02/2024, 18:34. FINDINGS AND IMPRESSION: The kidneys measure 9 cm. No hydronephrosis or solid mass identified. No significant cystic lesion. Bladder volume is 100 cc. Patient was unable to void during the time of study. Dictated by: Feng Hall M.D. on 12/26/2024 at 15:57 Approved by: Feng Hall M.D. on 12/26/2024 at 15:59
== END ==
PROVIDERS: PCP Family Medicine; Referring Provider Family Medicine; Visit Provider Family Medicine
DX: N13.30 Unspecified hydronephrosis (principal)
CPT/HCPCS: 76770

== ENCOUNTER → 2025-01-02 09:38 | Outpatient (CLI) | payer OTHER, SELFPAY ==
[2020-08-20 15:40] VITALS: BMI 32.8
[2025-01-02 13:00] LABS: Appearance Urine UA SL CLOUDY; Bilirubin Urine UA NEGATIVE (NEGATIVE); Color Urine UA YELLOW; Glucose Urine UA NEGATIVE (Negative); Ketones Urine UA NEGATIVE (NEGATIVE); Leukocyte Esterase Urine UA NEGATIVE (NEGATIVE); Nitrite Urine UA NEGATIVE (Negative); Occult Blood Urine UA TRACE-INTACT (Negative); Protein Urine UA NEGATIVE (Negative); Urobilinogen Urine UA 0.2 E.U./dL (0.2)
[2025-01-02 13:03] LABS: Urine Volume 10mL (spun)
[2025-01-02 13:04] LABS: Bacteria Urine Many (>30); Culture Indicated Urine Specimen Cultured; RBC Urine None Seen (0-5/HPF); Squamous Epithelial Cell Urine 1-5 /HPF (0-5/HPF); WBC Urine None Seen (0-5/HPF)
== END ==
PROVIDERS: PCP Family Medicine; Visit Provider Obstetrics & Gynecology
DX: N81.10 Cystocele, unspecified (principal)
CPT/HCPCS: 81001; 87077; 87086

== ENCOUNTER 2025-01-19 10:54 | Emergency (ER) | payer OTHER, SELFPAY ==
[2020-08-20 15:40] VITALS: BMI 32.8
[2025-01-19] VITALS (9 sets, daily range): BP systolic 161–169; BP diastolic 69–70; PULSE 56–72; RESP 16–24; TEMP 36.8; O2SAT 91–100; BMI 25.9
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
--- NOTE | 2025-01-19 11:20 | DI.CT.S_ITS ---
PROCEDURE: CT CHEST ABD PEL W CON INDICATIONS: abd pain n/v/d/ uterine prolapse TECHNIQUE: After the administration of intravenous contrast, 5 mm thick sections acquired from the lung apices to the symphysis. 5 mm coronal and sagittal reformats were performed, with additional 7 mm MIP reformats through the lungs. For radiation dose reduction, the following was used: automated exposure control, adjustment of mA and/or kV according to patient size. COMPARISON: None. FINDINGS: Image quality: Excellent. CHEST: Lower Neck: No enlarged lymph nodes. Thyroid: No thyroid nodules which require sonographic follow up, per consensus guidelines. Axillae: No enlarged lymph nodes. Chest Wall: Unremarkable. Lungs and Pleura: No pneumothorax or pleural effusions. No consolidation or suspicious nodules. Heart: Heart size is normal. There is a small amount of fluid within the pericardial space, most prominent within a pericardial reflection. Thoracic Vessels: The aorta and pulmonary arteries demonstrate normal size. Mediastinum and Eleonora: No enlarged lymph nodes. Esophagus: No wall thickening. No hiatal hernia. ABDOMEN: Liver: No solid mass. Gallbladder: Surgically absent with mild postsurgical biliary ductal Pancreas: Atrophic without ductal dilation. Spleen: Size is within normal limits. Adrenal Glands: No adrenal nodules. Kidneys and Ureters: Bilateral moderate hydroureteronephrosis. No solid mass. No complex renal cystic lesion which requires follow up. Stomach and Bowel: Normal colonic caliber, without significant wall thickening. Peritoneum: No abnormal intraperitoneal fluid. No free air. Ventral Wall: No significant ventral hernia. Abdominal Nodes: No retroperitoneal or mesenteric adenopathy by size criteria. Vessels: Aorta and inferior vena cava are normal in size. PELVIS: Pelvic Organs: There is prolapse of the pelvic organs involving at least the vagina/uterus and rectum as well as the urethra. Bladder: No bladder wall thickening. There is prolapse of the distal ureters and likely ureterovesicular junctions and caudal bladder as well. Pelvic Nodes: No enlarged lymph nodes. Miscellaneous: No inguinal hernias are seen. Bones: No aggressive osseous abnormality. 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 Otherwise no acute cardiopulmonary or abdominal process. Dictated by: Bibi Carter M.D. on 01/19/2025 at 11:38 Approved by: Bibi Carter M.D. on 01/19/2025 at 11:46
--- NOTE | 2025-01-19 11:33 | EKG_ITS ---
[place] [id number] [place] [id number] Test Date: 2025-01-19 Pat Name: Crow Lugo Department: [facility] Room: Gender: Female Healthcare Customer Service: EMMA : 1945 Requested By: Order Number: [id number] Reading MD: Norman Cabezas MD Measurements Intervals [place] Rate: 56 P: 59 FL: 164 QRS: -25 QRSD: 70 T: 59 QT: 466 QTc: 449 Interpretive Statements Sinus bradycardia Possible Left atrial enlargement Septal infarct , age undetermined ST & T wave abnormality, consider anterior ischemia Electronically Signed On 01-20-2025 6:41:10 PDT by Norman Cabezas MD
[2025-01-19] MEDS: LACTATED RINGERS 1,000 ML 1000 ML IV (11:37)
--- NOTE | 2025-01-19 12:05 | PC.NURSE ---
attempted twice, once with dr. rowe at bedside, for an IN and OUT catheter, unable to insert, unable to advance catheter.
[2025-01-19 12:06] LABS: Add Manual Diff / Slide Review NO; Basophils Absolute Auto 100 /uL (0-100); Basophils Percent Auto 0.9 % (0-2); Eosinophils Absolute Auto 0 /uL (0-450); Eosinophils Percent Auto 0.6 % (2-4); Hematocrit 38.6 % (36-46); Hemoglobin 12.9 g/dL (12.0-16.0); Lymphocytes Absolute Auto 1300 /uL (1100-4500); Lymphocytes Percent Auto 17.4 % (25-40); Mean Corpuscular HGB Conc 33.5 % (30-36); Mean Corpuscular Hemoglobin 28.2 PG (26-34); Mean Corpuscular Volume 84.1 fL (80-100); Monocytes Absolute Auto 400 /uL (0-900); Monocytes Percent Auto 4.9 % (3-14); Neutrophils Absolute Auto 5600 /uL (1500-7000); Neutrophils Percent Auto 76.2 % (50-75); Platelet Count 212 X10^3/uL (150-400); Red Blood Cell Count 4.58 X10^6/uL (4.0-5.2); Red Cell Distribution Width 15.2 % (11.6-14.8); White Blood Cell Count 7.3 X10^3/uL (4.5-11.0)
[2025-01-19 12:17] LABS: Alanine Aminotransferase 23 IU/L (<35); Albumin 4.3 g/dL (3.5-5.0); Albumin Globulin Ratio 1.3 (1.0-2.8); Alkaline Phosphatase 197 U/L (38-126); Aspartate Aminotransferase 30 IU/L (14-36); BUN Creatinine Ratio 26.3 (6-22); Bilirubin Total 0.7 mg/dL (0.2-1.3); Blood Urea Nitrogen 21 mg/dL (7-17); Calcium 8.9 mg/dL (8.4-10.2); Carbon Dioxide 29 mmol/L (22-32); Chloride 98 mmol/L (98-107); Estimated Glomerular Filt Rate > 60 mL/min (>60); Globulin 3.3 g/dL (1.7-4.1); Glucose 108 mg/dL (70-99); HEMOLYSIS < 15 (0-50); Lipase 24 U/L (23-300); Potassium 2.9 mmol/L (3.4-5.1); Sodium 137 mmol/L (137-145); Total Protein 7.6 g/dL (6.3-8.2)
[2025-01-19] MEDS: POTASSIUM CHLORIDE IN WATER 10 MEQ/100 ML PIGGYBACK 100 MEQ IV (12:53)
== END 2025-01-19 14:46 | disposition home or self-care (01) ==
PROVIDERS: Emergency Provider Family Medicine; PCP Family Medicine
DX: N81.4 Uterovaginal prolapse, unspecified (principal); N13.30 Unspecified hydronephrosis; R00.1 Bradycardia, unspecified
CPT/HCPCS: 36415; 71260; 74177; 80053; 81003; 83690; 85025; 93005; 93010; 96360; 96361; 99284; Q9967

== ENCOUNTER → 2025-04-18 09:21 | Outpatient (CLI) | payer OTHER, SELFPAY ==
[2025-01-29 15:06] VITALS: BMI 32.8
--- NOTE | 2025-04-18 09:22 | DI.US.S_ITS ---
PROCEDURE: US RENAL COMPLETE INDICATIONS: Bilateral hydronephrosis, now with pessary, ? now improved? TECHNIQUE: Real-time scanning was performed of the kidneys and bladder, with image documentation. COMPARISON: [facility], CT, CT ABDOMEN PELVIS W CON, 04/02/2024, 18:34. [facility], US, US RENAL COMPLETE, 12/26/2024, 8:39. FINDINGS: Kidneys: Kidneys are normal in size. Right kidney measures 9.1 cm long; left kidney measures 9.3 cm long. Right renal cortical thickness is 1.0 cm; left renal cortical thickness is 0.8 cm. Renal cortical echotexture is normal. No hydronephrosis or nephrolithiasis. No suspicious solid mass lesions. Bladder: Pre-void bladder volume is 60 mL. Post-void residual is not performed. Pre-void images demonstrate no intraluminal masses or stones. On pre-void images, no ureteral jets are noted with color Doppler interrogation. (Of note, ureteral jets may not be detectable in up to 25% of cases due to insufficient differences in specific gravity between ureteral and bladder urine). Miscellaneous: No free pelvic fluid. IMPRESSION: No hydronephrosis. Dictated by: Ken Sevilla M.D. on 04/18/2025 at 13:55 Approved by: Ken Sevilla M.D. on 04/18/2025 at 13:58
== END ==
PROVIDERS: PCP Family Medicine; Referring Provider Family Medicine; Visit Provider Obstetrics & Gynecology Gynecology
DX: N13.30 Unspecified hydronephrosis (principal); N81.3 Complete uterovaginal prolapse
CPT/HCPCS: 76770